=== PATIENT | male | born 1975 | race Caucasian/White ===

== ENCOUNTER → 2023-06-20 06:24 | Day surgery (SDC) | payer OTHER, SELFPAY | LOC: GI 06:24 | PROVIDERS: ATTENDING PHYSICIAN Internal Medicine; FAMILY PHYSICIAN Family Medicine | DX: Z12.11 Encounter for screening for malignant neoplasm of colon (principal); K57.30 Diverticulosis of large intestine without perforation or abscess without bleeding; K64.8 Other hemorrhoids; K64.4 Residual hemorrhoidal skin tags; D12.2 Benign neoplasm of ascending colon; K63.5 Polyp of colon | CPT/HCPCS: 45385; 88305 ==

== ENCOUNTER → 2023-06-27 17:20 | Outpatient (REF) | payer OTHER, SELFPAY | LOC: RAD 17:20 | PROVIDERS: ATTENDING PHYSICIAN Otolaryngology; FAMILY PHYSICIAN Family Medicine | DX: J33.9 Nasal polyp, unspecified (principal) | CPT/HCPCS: 70486 ==

== ENCOUNTER → 2023-08-10 14:10 | Outpatient (REF) | payer OTHER, SELFPAY | LOC: CLAB 14:10 | PROVIDERS: ATTENDING PHYSICIAN Otolaryngology | DX: J32.9 Chronic sinusitis, unspecified (principal); J33.9 Nasal polyp, unspecified; J34.2 Deviated nasal septum | CPT/HCPCS: 88304; 88311 ==